=== PATIENT | male | born 1960 | race Hispanic/Latino ===

== ENCOUNTER 2018-07-20 06:29 | Day surgery (SDC) | payer OTHER ==
[2018-07-20] MEDS ORDERED: Ringers Lactate 1,000 ML IV ONE (07:10)
[2018-07-20] MEDS ORDERED: PROPOFOL 200 MG/20 ML VIAL IV ONE (08:31)
[2018-07-20] MEDS ORDERED: LIDOCAINE 1% MPF 5 ML VIAL ONE (08:31)
--- NOTE | 2018-07-20 08:48 | ENDO RPT ---
[address], [address] EGD PROCEDURE REPORT EXAM DATE: 07/20/2018 PATIENT NAME: Michelle Estrada MR#: [id number] BIRTHDATE: 1960 ATTENDING: Ritchie Cardona Dr STATUS: outpatient HORSE RACE TIMER: Susan Schaefer RN and Yani Morin INDICATIONS: The patient is a 57 yr old Male here for an EGD due to melenic bleeding, history of peptic ulcer disease ( 1.5 cm ulcer) PROCEDURE PERFORMED: EGD with biopsy MEDICATIONS: Per Anesthesia. TOPICAL ANESTHETIC: none CONSENT: The patient understands the risks and benefits of the procedure and understands that these risks include, but are not limited to: sedation, allergic reaction, infection, perforation and/or bleeding. Alternative means of evaluation and treatment include, among others: physical exam, x-rays, and/or surgical intervention. The patient elects to proceed with this endoscopic procedure. DESCRIPTION OF PROCEDURE: During intra-op preparation period all mechanical medical equipment was checked for proper function. Hand hygiene and appropriate measures for infection prevention was taken. Procedure, possible complications, and alternatives including but not limited to the possibility of bleeding, perforation, tear, infection, sepsis, need for surgery, need for blood transfusion, and anesthesia related complications were explained to the patient. After the risks, benefits and alternatives of the procedure were thoroughly explained, Informed consent was verified, confirmed and timeout was successfully executed by the treatment team. The patient was placed in the left lateral position. The patient was anesthetized with topical anesthesia. Through the anesthetized oropharyngeal area, the scope was passed without any difficulty. The Pentax EG-[id number] ([id number]) endoscope was introduced through the mouth and advanced to the second portion of the duodenum. Retroflexed views revealed no abnormalities. The gastroscope was then slowly withdrawn and removed. A small hiatal hernia was found Moderate atrophic gastritis was found in the antrum. Multiple biopsies were obtained and sent to pathology. Multiple (10) erosions were found in the antrum. ADVERSE EVENTS: There were no complications. IMPRESSIONS: 1. A small hiatal hernia 2. Moderate atrophic gastritis in the antrum 3. Multiple (10) erosions in the antrum RECOMMENDATIONS: REPEAT EXAM: Ritchie Cardona Dr eSigned: Ritchie Cardona Dr 07/20/2018 8:48 AM cc: CPT CODES: ICD9 CODES: PATIENT NAME: Leslie Estradachele Hoover MR#: [id number]
--- NOTE | 2018-07-20 08:49 | ENDO RPT ---
[address], [address] EGD PROCEDURE REPORT EXAM DATE: 07/20/2018 PATIENT NAME: Michelle Estrada MR#: [id number] BIRTHDATE: 1960 ATTENDING: Ritchie Cardona Dr STATUS: outpatient LIBRARIAN SPECIAL LIBRARY: Susan Schaefer RN and Yani Morin INDICATIONS: The patient is a 57 yr old Male here for an EGD due to melenic bleeding, history of peptic ulcer disease ( 1.5 cm ulcer) PROCEDURE PERFORMED: EGD with biopsy MEDICATIONS: Per Anesthesia. TOPICAL ANESTHETIC: none CONSENT: The patient understands the risks and benefits of the procedure and understands that these risks include, but are not limited to: sedation, allergic reaction, infection, perforation and/or bleeding. Alternative means of evaluation and treatment include, among others: physical exam, x-rays, and/or surgical intervention. The patient elects to proceed with this endoscopic procedure. DESCRIPTION OF PROCEDURE: During intra-op preparation period all mechanical medical equipment was checked for proper function. Hand hygiene and appropriate measures for infection prevention was taken. Procedure, possible complications, and alternatives including but not limited to the possibility of bleeding, perforation, tear, infection, sepsis, need for surgery, need for blood transfusion, and anesthesia related complications were explained to the patient. After the risks, benefits and alternatives of the procedure were thoroughly explained, Informed consent was verified, confirmed and timeout was successfully executed by the treatment team. The patient was placed in the left lateral position. The patient was anesthetized with topical anesthesia. Through the anesthetized oropharyngeal area, the scope was passed without any difficulty. The Pentax EG-[id number] ([id number]) endoscope was introduced through the mouth and advanced to the second portion of the duodenum. Retroflexed views revealed no abnormalities. The gastroscope was then slowly withdrawn and removed. A small hiatal hernia was found Moderate atrophic gastritis was found in the antrum. Multiple biopsies were obtained and sent to pathology. Multiple (10) erosions were found in the antrum. ADVERSE EVENTS: There were no complications. IMPRESSIONS: 1. A small hiatal hernia 2. Moderate atrophic gastritis in the antrum 3. Multiple (10) erosions in the antrum RECOMMENDATIONS: REPEAT EXAM: Ritchie Cardona Dr eSigned: Ritchie Cardona Dr 07/20/2018 8:48 AM cc: CPT CODES: ICD9 CODES: PATIENT NAME: Leslie Estradachele Hoover MR#: [id number]
[2018-07-20 09:09] VITALS: BP 113/65; TEMP 97.8; O2SAT 97
== END 2018-07-20 09:18 | disposition home or self-care (01) ==
LOC: OR 06:29
PROVIDERS: ATTEND Internal Medicine Gastroenterology
PROC: 0DB78ZX Excision of Stomach, Pylorus, Via Natural or Artificial Opening Endoscopic, Diagnostic (ICD-10-PCS; principal; 2018-07-20 08:45)
DX: K29.40 Chronic atrophic gastritis without bleeding (principal); K44.9 Diaphragmatic hernia without obstruction or gangrene; K64.2 Third degree hemorrhoids; K92.1 Melena
CPT/HCPCS: 88305; 88312